=== PATIENT | male | born 1930 | race Caucasian/White ===

== ENCOUNTER → 2018-09-07 | Outpatient (CLI) | payer MEDICARE, OTHER ==
[~2018-09-07] MED LIST: ALPR0.254 PO; AMLO2.5T78 PO; CLOP75TA27 PO; DULO60CA59 PO; LOVA20TA PO; OMEP20CA16 PO; PANT40TA3 PO; PRED10TA PO; TS100V10 IM; ZOLP10TA5 PO
--- NOTE | 2018-09-07 11:11 | PN ---
Date/Time of Note Date/Time of Note DATE: 09/07/18 TIME: 11:05 Assessment/Plan VTE Prophylaxis Pharmacological prophylaxis: other Assessment/Plan Assessment/Plan 87-year-old male with left hip osteoarthritis and left knee osteoarthritis. His knee pain is worse than the hip pain. I have advised him that it is likely that he is getting referred pain from his left hip. Treatment options were discussed including medications, injections, physical therapy and surgery. The patient would like to try a hip injection before considering any surgical treatment. This is reasonable and the patient will be scheduled for left hip injection in the near future. Monovisc injection for left knee was also discussed. The patient would benefit most from a left hip replacement Subjective 24 Hr Interval Summary Free Text/Dictation Mr. Khoury is an 87-year-old male who is here for evaluation of left hip and left knee pain. The patient states that the knee pain is worse than the hip. The patient has a history of right knee replacement and is wondering how his left lower extremity pain can be treated. He is using a cane for support and due to poor balance. There is no history of trauma to the left lower extremity. Patient has tried medications and injections in the past. He has been to pain management and was treated for his lumbar spine as well. He is here for d efinitive treatment Additional Comments Past history is significant for hypertension, coronary artery disease, COPD and chronic pain. Medications include amlodipine, Plavix, duloxetine, lovastatin, pantoprazole, trazodone, fentanyl and oxycodone Previous surgery includes 5 lumbar operations, partial knee replacement on the right, cataract surgery, carpal tunnel surgery and prostatectomy Allergies to penicillin Review of systems is negative for chest pain, positive for mild shortness of breath, positive for left lower extremity pain Exam/Review of Systems Exam Vitals Vital signs show temperature of 98 degrees pulse rate 83 respirations 16 and blood pressure 151/77 Exam Examination shows a pleasant male. He is somewhat anxious. He uses a cane for support. The left lower extremity shows mild varus deformity of the left knee. The knee has no swelling. Range of motion is 5-120. There is medial joint line tenderness. Left hip has lateral tenderness. Range of motion of the left hip is limited and painful. There is 0 degrees of internal rotation. Left lower extremity is slightly shorter than the right. The right knee shows mild swelling and healed surgical scar. Right knee has 5-120 degrees of motion. X-rays of the left hip and pelvis show advanced osteoarthritis of the left hip with complete loss of joint space and subchondral sclerosis. X-rays of the knees show moderate osteoarthritis of the medial compartment of the left knee, right medial unicondylar knee replacement, chondrocalcinosis GONSALO MACIAS Sep 07, 2018 11:11
--- NOTE | 2018-09-08 18:17 | RADRPT ---
PROCEDURE: XR Knees. CLINICAL INDICATION: Bilateral knee pain. TECHNIQUE: Total of six views. Frontal, oblique, and lateral views of both knees. COMPARISON: No prior study is available for comparison. FINDINGS: On the right side, there is a medial joint arthroplasty which appears satisfactory with no evidence o f loosening. On the left side, there are degenerative changes with medial joint compartment narrowing and osteophy chidi. Articular surfaces are otherwise intact. There is no fracture or dislocation. There is no lytic or bl astic lesion. There is a small right knee joint effusion. Vascular calcifications are present consistent with atherosclerosis. IMPRESSION: 1. Right medial joint arthroplasty which appears satisfactory. 2. Small right knee joint effusion. 3. Moderate degenerative changes of the left knee involving the medial joint compartment. 4. Atherosclerosis. 5. Otherwise unremarkable RPTAT: QQ .Mykel Bass MD, MD Date Time Electronically viewed and signed by .Mykel Bass MD, MD on 09/08/2018 18:16 .R/
--- NOTE | 2018-09-08 18:17 | RADRPT ---
PROCEDURE: XR Pelvis and Hips. CLINICAL INDICATION: Pelvic pain. Bilateral hip pain. TECHNIQUE: Five views. Frontal pelvis. Frontal and lateral right hip. Frontal and lateral left h ip. COMPARISON: No prior studies are available for comparison. FINDINGS: There is no fracture or dislocation. Vascular calcifications are present consistent with atherosclerosis. There are mild degenerative changes of the right hip with osteophytes noted. There is moderate degene rative change of the left hip with joint space narrowing, osteophytes, and subchondral sclerosis. There is no lytic or blastic lesion. There are degenerative changes of the lower lumbar spine. IMPRESSION: 1. Mild degenerative changes of the right hip. 2. Moderate degenerative changes of the left hip. 3. Atherosclerosis. 4. Degenerative changes of the lower lumbar spine. 5. Otherwise x-ray pelvis and bilateral hips. RPTAT: QQ .Mykel Bass MD, Date Time Electronically viewed and signed by .Mykel Bass MD, on 09/08/2018 18:17 .R/
== END | disposition home or self-care (01) ==
LOC: HKI 10:05
PROVIDERS: ATTEND Orthopaedic Surgery
DX: M17.12 Unilateral primary osteoarthritis, left knee (principal); M16.12 Unilateral primary osteoarthritis, left hip; I10 Essential (primary) hypertension; I25.10 Atherosclerotic heart disease of native coronary artery without angina pectoris; J44.9 Chronic obstructive pulmonary disease, unspecified; G89.29 Other chronic pain; Z88.0 Allergy status to penicillin; Z96.651 Presence of right artificial knee joint
CPT/HCPCS: 73523; 73562; G0463

== ENCOUNTER 2018-09-17 05:45 | Day surgery (SDC) | payer MEDICARE, OTHER ==
[~2018-09-17] VITALS: Ht 175.3 cm; Wt 62.1 kg
[2018-09-17] VITALS (11 sets, daily range): BP systolic 120–141; BP diastolic 66–75; PULSE 62–78; RESP 12–20; Ht 175.3 cm; Wt 62.1 kg
[2018-09-17] MEDS ORDERED: CLOP75TA27 PO (06:46)
[2018-09-17] MEDS ORDERED: PANT40TA3 PO (06:47)
[2018-09-17] MEDS ORDERED: DULO60CA59 PO (06:47)
[2018-09-17] MEDS ORDERED: AMLO2.5T78 PO (06:48)
[2018-09-17] MEDS ORDERED: TS100V10 IM (06:49)
[2018-09-17] MEDS ORDERED: METHYLPREDNISOLONE ACET 80 MG/ML 1 ML ONE (06:50)
[2018-09-17] MEDS ORDERED: SODIUM CL BACTERIOSTATIC 30 ML INJ ONE (06:50)
[2018-09-17] MEDS ORDERED: LOVA20TA PO (06:50)
[2018-09-17] MEDS ORDERED: ALPR0.254 PO (06:50)
[2018-09-17] MEDS ORDERED: IOHEXOL 300MG/ML 30 ML BTL ONE (06:51)
[2018-09-17] MEDS ORDERED: ZOLP10TA5 PO (06:51)
[2018-09-17] MEDS ORDERED: PRED10TA PO (06:51)
[2018-09-17] MEDS ORDERED: OMEP20CA16 PO (06:52)
--- NOTE | 2018-09-17 07:28 | PREAC ---
Date/Time of Note Date/Time of Note DATE: 09/17/18 TIME: 07:24 Anesthesia Eval and Record Evaluation Time Pre-Procedure Interview DATE: 09/17/18 TIME: 07:24 Age 87 Sex male NPO: 8 hrs Preoperative diagnosis left hip pain Planned procedure fluoroscent guided cortison injection. left hip Past Medical History Past Medical History: Includes Cardio: HTN, Other (AVR) Pulm: COPD GI: GERD Surgery & Anesthesia Issues No known issue Meds Anticoagulation: No Beta Deonna within 24 hr: No Reason Beta Deonna not given: Pt. not on B-Deonna Reported Medications Omeprazole* (Omeprazole*) 20 Mg Capsule.dr, 20 MG PO QID, #60 CAP 09/17/18 Zolpidem Tartrate* (Zolpidem Tartrate*) 10 Mg Tablet, 10 MG PO QHS PRN for INSOMNIA, #30 TAB 09/17/18 Prednisone* (Prednisone*) 10 Mg Tab, 10 MG PO TID, TAB 09/17/18 Lovastatin* (Lovastatin*) 20 Mg Tablet, 20 MG PO HS, TAB 09/17/18 Alprazolam* (Alprazolam*) 0.25 Mg Tablet, 0.25 MG PO TID PRN for ANXIETY, TAB 09/17/18 Testosterone Cypionate* (Depo-Testosterone*) 100 Mg/Ml Vial, 100 MG IM EVERY 14 DAYS, VIAL 09/17/18 Amlodipine Besylate* (Amlodipine Besylate*) 2.5 Mg Tablet, 2.5 MG PO DAILY, #30 TAB 09/17/18 Duloxetine Hcl* (Duloxetine Hcl*) 60 Mg Capsule.dr, 60 MG PO BID, #30 CAP 09/17/18 Pantoprazole* (Protonix*) 40 Mg Tablet.dr, 40 MG PO DAILY, TAB 09/17/18 Clopidogrel Bisulfate (Clopidogrel) 75 Mg Tablet, 75 MG PO DAILY, #30 TAB 09/17/18 Meds reviewed: Yes Allergies Coded Allergies: Penicillins (Verified Allergy, Unknown, 09/17/18) Allergies Reviewed: Yes Labs/Studies Labs Reviewed: Reviewed by anesthesiologist test: N/A Studies: ECG (sr), CXR (nl) Pre-procedure Exam Last vitals Vital Signs Date Temp Pulse Resp B/P (MAP) Pulse Ox O2 O2 Flow FiO2 Time Delivery Rate 09/17/18 98.2 78 18 126/70 98 Room Air 07:02 (88) Airway: Adequate mouth opening Mallampati: Mallampati I Teeth: Normal Lung: Normal Heart: Normal ASA Physical Status ASA physical status: 2 Emergency: None Planned Anesthetic General/MAC: MAC Planned Pain Management Parenteral pain med Pre-operative Attestations Prior to commencing anesthesia and surgery, the patient was re-evaluated, there was verification of: *The patient's identity *The results of appropriate recent lab work and preoperative vital signs *The above evaluation not changing prior to induction *Anesthetic plan, risk benefits, alternative and complications discussed with patient/family; questions answered; patient/family understands, accepts and wishes to proceed. SUDARSHAN ARANDA MD Sep 17, 2018 07:27
[2018-09-17] MEDS ORDERED: HYDROmorphONE 1 MG/5 ML IV SYRINGE IV PRN ×3 (07:30)
[2018-09-17] MEDS ORDERED: hydrALAzine 20 MG INJ IV PRN (07:30)
[2018-09-17] MEDS ORDERED: ONDANSETRON 4 MG INJ IV PRN (07:30)
[2018-09-17] MEDS ORDERED: LABETALOL HCL 20MG INJ IV PRN (07:30)
[2018-09-17] MEDS ORDERED: PROPOFOL 20 ML ONE (07:36)
[2018-09-17] MEDS ORDERED: MIDAZOLAM 1 MG/ML 2 ML INJ ONE (07:37)
[2018-09-17] MEDS ORDERED: FENTAnyl 50 MCG/ML VIAL ONE (07:37)
--- NOTE | 2018-09-17 07:48 | HPN ---
Date/Time of Note Date/Time of Note DATE: 09/17/18 TIME: 07:48 Interval H&P Admission Note Pt. seen H&P reviewed: No system changes GONSALO MACIAS Sep 17, 2018 07:48
[2018-09-17] MEDS ORDERED: LIDOCAINE 1% (MPF) 30 ML INJ ONE (07:59)
[2018-09-17] MEDS ORDERED: BUPIVACAINE 0.25% (MPF) 30 ML INJ ONE (07:59)
--- NOTE | 2018-09-17 08:11 | SIPON ---
Date/Time of Note Date/Time of Note DATE: 09/17/18 TIME: 08:09 Operative Report Preoperative Diagnosis Left hip osteoarthritis Postoperative Diagnosis Same Operation/Procedure Performed Left hip steroid injection under fluoroscopy Surgeon see signature line registered nurse first assistant none Anesthesia: MAC Estimated blood loss: 0 - 10 ml's Transfusion Required none Specimen none Grafts/Implants none Complications none GONSALO MACIAS Sep 17, 2018 08:11
--- NOTE | 2018-09-17 08:14 | OPR ---
Date/Time of Note Date/Time of Note DATE: 09/17/18 TIME: 08:11 Operative Report Procedure Date: Sep 17, 2018 Preoperative Diagnosis Left hip osteoarthritis Postoperative Diagnosis Same Operation/Procedure Performed Left hip cortisone injection under fluoroscopy Surgeon see signature line Inpatient Pharmacist None Anesthesia Type: MAC Estimated Blood Loss: 0 - 10 ml's Transfusion none Specimen None Grafts/Implants none Complications none Pt Condition Post Procedure: stable Disposition: PACU Indications The patient is an 87-year-old male with advanced osteoarthritis of his left hip Procedure Description The patient was placed supine on the operating room table. The left hip was visualized under fluoroscopy. The left hip was prepped and 22-gauge spinal needle advanced into the left hip under fluoroscopy. Lidocaine was used for local anesthesia. An arthrogram was made using Isovue dye. Once intra- articular placement of the needle was confirmed, 3 mL of Marcaine and 80 mg of Depo-Medrol were injected into the left hip. Patient was transferred to the recovery room in stable condition GONSALO MACIAS Sep 17, 2018 08:14
--- NOTE | 2018-09-17 09:32 | PAC ---
Date/Time of Note Date/Time of Note DATE: 09/17/18 TIME: 09:32 Post-Anesthesia Notes Post-Anesthesia Note Last documented vital signs Vital Signs Date Temp Pulse Resp B/P (MAP) Pulse Ox O2 O2 Flow FiO2 Time Delivery Rate 09/17/18 97.2 69 17 139/70 98 Room Air 09:20 (93) 09/17/18 2.0 08:20 Activity: WNL Respiratory function: WNL Cardiovascular function: WNL Mental status: Baseline Pain reasonably controlled: Yes Hydration appropriate: Yes Nausea/Vomiting absent: No SUDARSHAN ARANDA MD Sep 17, 2018 09:32
== END 2018-09-17 09:20 | disposition home or self-care (01) ==
LOC: SDS 05:45
PROVIDERS: ATTEND Orthopaedic Surgery
DX: M16.12 Unilateral primary osteoarthritis, left hip (principal); I10 Essential (primary) hypertension; J44.9 Chronic obstructive pulmonary disease, unspecified
CPT/HCPCS: 27095; 73530; J1040; J3010; Q9967; J2250